=== PATIENT | female | born 1940 | race Caucasian/White ===

== ENCOUNTER 2022-02-11 08:47 | Inpatient (IN) ==
[2022-02-11] MEDS ORDERED: fentaNYL 100 MCG/2 ML VIAL IV STA ×3 (09:39→13:44)
[2022-02-11] MEDS ORDERED: ONDANSETRON 4 MG/2 ML VIAL IV STA (09:39)
[2022-02-11] MEDS ORDERED: ONDANSETRON 4 MG/2 ML VIAL ONE (09:40)
[2022-02-11] MEDS ORDERED: fentaNYL 100 MCG/2 ML VIAL ONE (09:41)
[2022-02-11 11:39] LABS: Basophils # 0.1 10*3/uL (0.0-0.2); Basophils % 0.4 % (0.0-0.8); Eosinophils % 0.3 % (0.00-10.9); Hematocrit 34.5 VOL% (35.7-47.0); Immature Granulocytes % 0.4 %; Immature Granulocytes Absolute 0.05 #; Lymphocytes # 0.9 10*3/uL (1.4-4.0); Lymphocytes % 7.9 % (21.3-54.2); Mean Corpuscular HGB Conc 31.9 GM/DL (32-36); Mean Corpuscular Volume 91.3 FL (87-102); Mean Platelet Volume 10.7 FL (9.6-12.0); Monocytes # 0.5 10*3/uL (0.11-0.8); Monocytes % 4.5 % (1.7-12.7); Neutrophils % 86.5 % (38.7-73.9); Platelet Count 166 T/CUMM (130-400); Red Blood Count 3.78 MC/CUMM (3.8-5.5); White Blood Count 11.7 T/CUMM (4-12)
[2022-02-11 11:50] LABS: INR 1.1; PT Patient Result 12.3 SECS (10.5-12.0); Partial Thromboplastin Time 24.5 SECS (23.8-32.1)
[2022-02-11 11:58] LABS: Albumin 3.5 G/DL (3.4-5.0); Bilirubin,Total 1.1 MG/DL (0.20-1.00); Calcium 8.6 MG/DL (8.5-10.1); Osmolality,Calculated 283.3 MOS/KG (273-304); Potassium 4.1 MMOL/L (3.5-5.1); Total Protein 7.3 G/DL (6.4-8.2)
[2022-02-11] MEDS ORDERED: ONDANSETRON 4 MG/2 ML VIAL IV PRN (12:46)
[2022-02-11] MEDS ORDERED: ACETAMINOPHEN 325 MG TABLET PO PRN (12:46)
[2022-02-11] MEDS ORDERED: GLUCAGON 1 MG VIAL IM PRN (12:46)
[2022-02-11] MEDS ORDERED: KETOROLAC 30 MG/1 ML VIAL IV PRN (12:52)
[2022-02-11 12:54] LABS: Bacteria,Urine Moderate /HPF (Few); Bilirubin,Urine Negative (Negative); Blood, Urine Trace mg/dL (Negative); Glucose,Urine (UA) Negative (Negative); Ketones,Urine Trace mg/dL (Negative); Mucus,Urine Occasional /LPF (Occasional); Nitrite,Urine Negative (Negative); Protein,Urine Negative (Negative); RBC,Urine 4 /HPF (0-4); Squamous Epithelial Cell,Urine Occasional /HPF (0-10); Urine Appearance Clear (Clear); Urine Color Yellow (Yellow); Urine pH 5.5 (4.5-8.0)
[2022-02-11 12:55] LABS: Urine Urobilinogen 0.2 eU/dL (<2.0)
[2022-02-11] MEDS ORDERED: DEXTROSE 10% 250 ML BAG IV PRN (12:55)
[2022-02-11 13:37] LABS: Risk Ratio 3.76; Thyroid Stimulating Hormone 3.63 uIU/ml (0.358-3.74); VLDL Cholesterol 13.2 MG/DL
[2022-02-11] MEDS: LACTATED RINGERS 1,000 ML IV SCH (14:15)
[2022-02-11] MEDS: hydrALAZINE 20 MG/1 ML VIAL IV PRN ×2 (14:16→19:22)
[2022-02-11] MEDS ORDERED: MORPHINE 2 MG/1 ML SYRINGE IV PRN ×2 (15:30→15:33)
[2022-02-11] MEDS: DOCUSATE SODIUM 100 MG CAPSULE PO SCH (21:14)
[2022-02-12] MEDS: LACTATED RINGERS 1,000 ML IV SCH ×2 (02:58→17:29)
[2022-02-12 05:50] LABS: Basophils % 0.3 % (0.0-0.8); Eosinophils % 0.2 % (0.00-10.9); Hematocrit 35.3 VOL% (35.7-47.0); Hemoglobin 11.2 GM/DL (12.0-16.0); Immature Granulocytes % 0.5 %; Immature Granulocytes Absolute 0.06 #; Lymphocytes # 0.9 10*3/uL (1.4-4.0); Lymphocytes % 7.9 % (21.3-54.2); Mean Corpuscular HGB Conc 31.7 GM/DL (32-36); Mean Corpuscular Volume 90.1 FL (87-102); Mean Platelet Volume 11.3 FL (9.6-12.0); Monocytes # 0.7 10*3/uL (0.11-0.8); Neutrophils % 85.1 % (38.7-73.9); Platelet Count 144 T/CUMM (130-400); Red Blood Count 3.92 MC/CUMM (3.8-5.5); White Blood Count 11.9 T/CUMM (4-12)
[2022-02-12 06:07] LABS: Albumin 3.2 G/DL (3.4-5.0); Bilirubin,Total 1.6 MG/DL (0.20-1.00); Calcium 8.8 MG/DL (8.5-10.1); Osmolality,Calculated 281.4 MOS/KG (273-304); Potassium 4.3 MMOL/L (3.5-5.1); Total Protein 7.3 G/DL (6.4-8.2)
[2022-02-12] MEDS ORDERED: BUPIVACAINE MPF 0.5% 30 ML VIAL ONE (08:02)
[2022-02-12] MEDS ORDERED: LIDOCAINE 1% 5 ML VIAL ONE (08:03)
[2022-02-12] MEDS ORDERED: DEXAMETHASONE 4 MG/1 ML VIAL ONE (08:03)
[2022-02-12] MEDS ORDERED: propofoL 200 MG/20 ML VIAL IV ONE (08:38)
[2022-02-12] MEDS ORDERED: ROCURONIUM 50 MG/5 ML VIAL IV ONE (08:38)
[2022-02-12] MEDS ORDERED: ETOMIDATE 40 MG/20 ML VIAL IV ONE (08:38)
[2022-02-12] MEDS ORDERED: MIDAZOLAM 2 MG/2 ML VIAL ONE (08:38)
[2022-02-12] MEDS ORDERED: SEVOFLURANE 1 UNIT/15 MINUTE INH ONE (08:38)
[2022-02-12] MEDS ORDERED: ACETAMINOPHEN INJ 1,000 MG/100 ML VIAL IV ONE (08:38)
[2022-02-12] MEDS ORDERED: LIDOCAINE 2% 5 ML VIAL ONE (08:38)
[2022-02-12] MEDS ORDERED: ONDANSETRON 4 MG/2 ML VIAL ONE (08:38)
[2022-02-12] MEDS ORDERED: PHENYLEPHRINE 1 MG/10 ML SYRINGE IV ONE (08:38)
[2022-02-12] MEDS ORDERED: fentaNYL 100 MCG/2 ML VIAL ONE ×2 (08:39→10:12)
[2022-02-12] MEDS ORDERED: VANCOMYCIN INJ 1,000 MG in SODIUM CHLORIDE 0.9% 250 ML IV ONE (09:00)
[2022-02-12] MEDS ORDERED: MAGNESIUM HYDROXIDE SUSP 30 ML UDCUP PO PRN (09:52)
[2022-02-12] MEDS ORDERED: TRANEXAMIC ACID 1,000 MG/10 ML VIAL ONE (09:58)
[2022-02-12] MEDS ORDERED: BACITRACIN OINT 0.9 GM PACK TOP ONE (10:25)
[2022-02-12] MEDS ORDERED: ONDANSETRON 4 MG/2 ML VIAL IV PRN (11:30)
[2022-02-12] MEDS ORDERED: diphenhydrAMINE 50 MG/1 ML VIAL IV PRN (11:30)
[2022-02-12] MEDS ORDERED: PROMETHAZINE INJ 25 MG in SODIUM CHLORIDE 0.9% 50 ML IV PRN (11:30)
[2022-02-12] MEDS: HYDROmorphone 1 MG/1 ML SYRINGE IV PRN ×2 (11:55→12:00)
[2022-02-12] MEDS: hydrALAZINE 20 MG/1 ML VIAL IV PRN (12:05)
[2022-02-12] MEDS: DOCUSATE SODIUM 100 MG CAPSULE PO SCH ×2 (13:41→20:55)
[2022-02-12] MEDS: PANTOPRAZOLE 40 MG TABLET PO SCH (13:41)
[2022-02-12] MEDS: KETOROLAC 15 MG/1 ML VIAL IV SCH ×2 (13:41→17:29)
[2022-02-12] MEDS: APIXABAN 2.5 MG TABLET PO SCH (20:55)
[2022-02-12] MEDS: QUEtiapine 25 MG TABLET PO SCH (21:16)
[2022-02-13] MEDS: KETOROLAC 15 MG/1 ML VIAL IV SCH ×2 (00:22→05:20)
[2022-02-13] MEDS: LACTATED RINGERS 1,000 ML IV SCH ×4 (00:39→22:29)
[2022-02-13] MEDS ORDERED: FONDAPARINUX 2.5 MG/0.5 ML SYRINGE SUBCUT SCH (05:00)
[2022-02-13 05:34] LABS: Basophils % 0.1 % (0.0-0.8); Eosinophils # 0.1 10*3/uL (0.0-0.87); Eosinophils % 0.6 % (0.00-10.9); Hematocrit 26.8 VOL% (35.7-47.0); Immature Granulocytes % 0.4 %; Immature Granulocytes Absolute 0.03 #; Lymphocytes # 1.2 10*3/uL (1.4-4.0); Lymphocytes % 13.7 % (21.3-54.2); Mean Corpuscular HGB Conc 32.1 GM/DL (32-36); Mean Corpuscular Volume 91.2 FL (87-102); Mean Platelet Volume 10.9 FL (9.6-12.0); Monocytes # 0.7 10*3/uL (0.11-0.8); Monocytes % 8.5 % (1.7-12.7); Neutrophils % 76.7 % (38.7-73.9); Platelet Count 117 T/CUMM (130-400); Red Cell Distribution Width 14.3 % (9.3-17.3); White Blood Count 8.4 T/CUMM (4-12)
[2022-02-13 05:37] LABS: Hemoglobin 8.6 GM/DL (12.0-16.0); Red Blood Count 2.94 MC/CUMM (3.8-5.5)
[2022-02-13 05:42] LABS: Albumin 2.5 G/DL (3.4-5.0); Bilirubin,Total 1.4 MG/DL (0.20-1.00); Calcium 7.9 MG/DL (8.5-10.1); Osmolality,Calculated 281.4 MOS/KG (273-304); Potassium 4.1 MMOL/L (3.5-5.1); Total Protein 5.8 G/DL (6.4-8.2)
[2022-02-13] MEDS ORDERED: CYANOCOBALAMIN 1000 MCG/1 ML VIAL IM SCH (08:00)
[2022-02-13] MEDS: MAGNESIUM CHLORIDE 64 MG TABLET PO SCH ×2 (08:15→20:51)
[2022-02-13] MEDS: PANTOPRAZOLE 40 MG TABLET PO SCH (08:15)
[2022-02-13] MEDS: DOCUSATE SODIUM 100 MG CAPSULE PO SCH ×2 (08:15→20:51)
[2022-02-13] MEDS: lisinopriL 5 MG TABLET PO SCH ×2 (08:15→20:52)
[2022-02-13] MEDS: APIXABAN 2.5 MG TABLET PO SCH ×2 (08:15→20:51)
[2022-02-13] MEDS: METOPROLOL SUCCINATE XL 50 MG TABLET PO SCH ×2 (08:16→20:51)
[2022-02-13] MEDS: ALFUZOSIN 10 MG TABLET PO SCH (20:51)
[2022-02-13] MEDS: QUEtiapine 25 MG TABLET PO SCH (20:52)
[2022-02-14 05:13] LABS: Basophils % 0.4 % (0.0-0.8); Eosinophils # 0.4 10*3/uL (0.0-0.87); Eosinophils % 4.6 % (0.00-10.9); Hematocrit 25.6 VOL% (35.7-47.0); Hemoglobin 8.2 GM/DL (12.0-16.0); Immature Granulocytes % 0.4 %; Immature Granulocytes Absolute 0.03 #; Lymphocytes # 1.4 10*3/uL (1.4-4.0); Lymphocytes % 17.9 % (21.3-54.2); Mean Corpuscular Volume 90.5 FL (87-102); Mean Platelet Volume 10.9 FL (9.6-12.0); Monocytes # 0.7 10*3/uL (0.11-0.8); Monocytes % 8.2 % (1.7-12.7); Neutrophils % 68.5 % (38.7-73.9); Platelet Count 109 T/CUMM (130-400); Red Blood Count 2.83 MC/CUMM (3.8-5.5); Red Cell Distribution Width 14.1 % (9.3-17.3)
[2022-02-14 05:46] LABS: Albumin 2.6 G/DL (3.4-5.0); Bilirubin,Total 1.1 MG/DL (0.20-1.00); Calcium 7.5 MG/DL (8.5-10.1); Osmolality,Calculated 278.5 MOS/KG (273-304); Potassium 3.8 MMOL/L (3.5-5.1); Total Protein 5.8 G/DL (6.4-8.2)
[2022-02-14] MEDS: LACTATED RINGERS 1,000 ML IV SCH (06:47)
[2022-02-14] MEDS: METOPROLOL SUCCINATE XL 50 MG TABLET PO SCH ×2 (09:25→21:04)
[2022-02-14] MEDS: MAGNESIUM CHLORIDE 64 MG TABLET PO SCH ×2 (09:25→21:03)
[2022-02-14] MEDS: APIXABAN 2.5 MG TABLET PO SCH ×2 (09:25→21:03)
[2022-02-14] MEDS: DOCUSATE SODIUM 100 MG CAPSULE PO SCH ×2 (09:26→21:33)
[2022-02-14] MEDS: PANTOPRAZOLE 40 MG TABLET PO SCH (09:26)
[2022-02-14] MEDS: lisinopriL 5 MG TABLET PO SCH ×2 (09:26→21:03)
[2022-02-14] MEDS ORDERED: LEVALBUTEROL 0.63 MG/3 ML NEB RESP TX PRN (12:49)
[2022-02-14] MEDS: QUEtiapine 25 MG TABLET PO SCH (21:03)
[2022-02-14] MEDS: ALFUZOSIN 10 MG TABLET PO SCH (21:04)
[2022-02-15 06:14] LABS: Basophils % 0.4 % (0.0-0.8); Eosinophils # 0.5 10*3/uL (0.0-0.87); Eosinophils % 6.1 % (0.00-10.9); Hematocrit 23.5 VOL% (35.7-47.0); Hemoglobin 7.4 GM/DL (12.0-16.0); Immature Granulocytes % 0.4 %; Immature Granulocytes Absolute 0.03 #; Lymphocytes # 1.5 10*3/uL (1.4-4.0); Lymphocytes % 19.5 % (21.3-54.2); Mean Corpuscular HGB Conc 31.5 GM/DL (32-36); Mean Corpuscular Volume 91.8 FL (87-102); Mean Platelet Volume 11.5 FL (9.6-12.0); Monocytes # 0.6 10*3/uL (0.11-0.8); Monocytes % 8.3 % (1.7-12.7); Neutrophils % 65.3 % (38.7-73.9); Platelet Count 114 T/CUMM (130-400); Red Blood Count 2.56 MC/CUMM (3.8-5.5); Red Cell Distribution Width 14.2 % (9.3-17.3); White Blood Count 7.4 T/CUMM (4-12)
[2022-02-15 06:36] LABS: Albumin 2.3 G/DL (3.4-5.0); Bilirubin,Total 0.9 MG/DL (0.20-1.00); Calcium 7.5 MG/DL (8.5-10.1); Osmolality,Calculated 285.8 MOS/KG (273-304); Potassium 3.7 MMOL/L (3.5-5.1); Total Protein 5.3 G/DL (6.4-8.2)
[2022-02-15 07:46] VITALS: BP 131/61
[2022-02-15] MEDS: PANTOPRAZOLE 40 MG TABLET PO SCH (08:51)
[2022-02-15] MEDS: APIXABAN 2.5 MG TABLET PO SCH (08:51)
[2022-02-15] MEDS: DOCUSATE SODIUM 100 MG CAPSULE PO SCH (08:51)
[2022-02-15] MEDS: lisinopriL 5 MG TABLET PO SCH (08:51)
[2022-02-15] MEDS: METOPROLOL SUCCINATE XL 50 MG TABLET PO SCH (08:51)
[2022-02-15] MEDS: MAGNESIUM CHLORIDE 64 MG TABLET PO SCH (08:51)
== END 2022-02-15 10:40 | DRG 522 ==
LOC: EDBD → EDUNIT# → N.ED 08:47 → N.EDINP 12:46 → SUATTDRO 12:46 → N.3E 15:47
PROVIDERS: ADMIT Internal Medicine; ATTEND Internal Medicine

== ENCOUNTER 2022-03-01 17:32 | Inpatient (IN) ==
[~2022-03-01 17:32] MED LIST: MAGNESIUM HYDROXIDE SUSP 30 ML UDCUP PO PRN
[2022-03-01] MEDS ORDERED: HYDROmorphone 1 MG/1 ML SYRINGE IV PRN (17:33)
[2022-03-01] MEDS ORDERED: ONDANSETRON 4 MG/2 ML VIAL IV PRN (17:33)
[2022-03-01] MEDS ORDERED: LEVALBUTEROL 0.63 MG/3 ML NEB RESP TX PRN (17:37)
[2022-03-01] MEDS: METOPROLOL SUCCINATE XL 50 MG TABLET PO SCH (21:16)
[2022-03-01] MEDS: DOCUSATE SODIUM 100 MG CAPSULE PO SCH (21:16)
[2022-03-01] MEDS: LACTATED RINGERS 1,000 ML IV SCH (21:16)
[2022-03-01] MEDS: QUEtiapine 25 MG TABLET PO SCH (21:16)
[2022-03-01 21:31] LABS: Basophils % 0.4 % (0.0-0.8); Eosinophils % 0.5 % (0.00-10.9); Hematocrit 24.9 VOL% (35.7-47.0); Hemoglobin 7.8 GM/DL (12.0-16.0); Immature Granulocytes % 0.5 %; Immature Granulocytes Absolute 0.04 #; Lymphocytes # 1.2 10*3/uL (1.4-4.0); Lymphocytes % 14.7 % (21.3-54.2); Mean Corpuscular HGB Conc 31.3 GM/DL (32-36); Mean Corpuscular Volume 91.5 FL (87-102); Mean Platelet Volume 9.5 FL (9.6-12.0); Monocytes # 0.9 10*3/uL (0.11-0.8); Monocytes % 10.5 % (1.7-12.7); Neutrophils % 73.4 % (38.7-73.9); Platelet Count 337 T/CUMM (130-400); Red Blood Count 2.72 MC/CUMM (3.8-5.5); Red Cell Distribution Width 14.6 % (9.3-17.3); White Blood Count 8.3 T/CUMM (4-12)
[2022-03-01 21:49] LABS: Calcium 7.8 MG/DL (8.5-10.1); Potassium 4.3 MMOL/L (3.5-5.1)
[2022-03-01] MEDS: MAGNESIUM CHLORIDE 64 MG TABLET PO SCH (22:00)
[2022-03-01] MEDS: VANCOMYCIN INJ 1,000 MG in SODIUM CHLORIDE 0.9% 250 ML IV SCH (23:50)
[2022-03-02 06:32] LABS: Basophils % 0.5 % (0.0-0.8); Eosinophils # 0.1 10*3/uL (0.0-0.87); Eosinophils % 1.7 % (0.00-10.9); Hematocrit 23.8 VOL% (35.7-47.0); Hemoglobin 7.5 GM/DL (12.0-16.0); Immature Granulocytes % 0.5 %; Immature Granulocytes Absolute 0.03 #; Lymphocytes # 1.2 10*3/uL (1.4-4.0); Lymphocytes % 19.9 % (21.3-54.2); Mean Corpuscular HGB Conc 31.5 GM/DL (32-36); Mean Corpuscular Volume 91.9 FL (87-102); Mean Platelet Volume 9.8 FL (9.6-12.0); Monocytes # 0.6 10*3/uL (0.11-0.8); Monocytes % 10.4 % (1.7-12.7); Platelet Count 308 T/CUMM (130-400); Red Blood Count 2.59 MC/CUMM (3.8-5.5); Red Cell Distribution Width 14.5 % (9.3-17.3)
[2022-03-02] MEDS ORDERED: SODIUM CHLORIDE 0.9% 1,000 ML IV PRN (06:41)
[2022-03-02 06:42] LABS: INR 1.1; PT Patient Result 12.4 SECS (10.5-12.0); Partial Thromboplastin Time 29.3 SECS (23.8-32.1)
[2022-03-02 06:56] LABS: Albumin 2.1 G/DL (3.4-5.0); Bilirubin,Total 0.7 MG/DL (0.20-1.00); Calcium 7.9 MG/DL (8.5-10.1); Osmolality,Calculated 277.5 MOS/KG (273-304); Potassium 4.1 MMOL/L (3.5-5.1); Total Protein 6.3 G/DL (6.4-8.2)
[2022-03-02] MEDS ORDERED: ACETAMINOPHEN 325 MG TABLET PO PRN (07:17)
[2022-03-02] MEDS: FUROSEMIDE 20 MG TABLET PO SCH (11:18)
[2022-03-02] MEDS: DIGOXIN 0.125 MG TABLET PO SCH (11:18)
[2022-03-02] MEDS: LACTATED RINGERS 1,000 ML IV SCH ×2 (11:18→13:59)
[2022-03-02] MEDS: POTASSIUM CHLORIDE 20 MEQ TABLET PO SCH (11:18)
[2022-03-02] MEDS: DOCUSATE SODIUM 100 MG CAPSULE PO SCH ×2 (11:18→21:21)
[2022-03-02] MEDS: FERROUS SULFATE 325 MG TABLET PO SCH (11:18)
[2022-03-02] MEDS: PANTOPRAZOLE 40 MG TABLET PO SCH (11:19)
[2022-03-02] MEDS: MAGNESIUM CHLORIDE 64 MG TABLET PO SCH ×2 (11:19→21:20)
[2022-03-02] MEDS: METOPROLOL SUCCINATE XL 50 MG TABLET PO SCH ×2 (11:19→21:20)
[2022-03-02] MEDS ORDERED: BACITRACIN OINT 0.9 GM PACK TOP ONE (11:59)
[2022-03-02] MEDS ORDERED: LACTATED RINGERS 1,000 ML IV SCH (12:00)
[2022-03-02] MEDS ORDERED: LIDOCAINE 2% 5 ML VIAL ONE (12:35)
[2022-03-02] MEDS ORDERED: propofoL 200 MG/20 ML VIAL IV ONE (12:35)
[2022-03-02] MEDS ORDERED: SEVOFLURANE 1 UNIT/15 MINUTE INH ONE ×7 (12:35→15:45)
[2022-03-02] MEDS ORDERED: fentaNYL 100 MCG/2 ML VIAL ONE ×2 (12:35→15:10)
[2022-03-02] MEDS ORDERED: ROCURONIUM 50 MG/5 ML VIAL IV ONE (12:35)
[2022-03-02] MEDS ORDERED: SUCCINYLCHOLINE 200 MG/10 ML VIAL ONE (12:36)
[2022-03-02] MEDS ORDERED: DEXAMETHASONE 4 MG/1 ML VIAL ONE (15:36)
[2022-03-02] MEDS ORDERED: ACETAMINOPHEN INJ 1,000 MG/100 ML VIAL IV ONE (15:36)
[2022-03-02] MEDS ORDERED: ONDANSETRON 4 MG/2 ML VIAL ONE (15:36)
[2022-03-02] MEDS ORDERED: KETOROLAC 30 MG/1 ML VIAL ONE (15:36)
[2022-03-02] MEDS ORDERED: TRANEXAMIC ACID 1,000 MG/10 ML VIAL ONE (15:37)
[2022-03-02] MEDS ORDERED: KETOROLAC 15 MG/1 ML VIAL IV PRN (15:51)
[2022-03-02 16:17] LABS: Bacteria,Urine Occasional /HPF (Few); RBC,Urine 25-30 /HPF (0-4); Squamous Epithelial Cell,Urine Occasional /HPF (0-10)
[2022-03-02 16:18] LABS: Bilirubin,Urine Negative (Negative); Blood, Urine Moderate mg/dL (Negative); Glucose,Urine (UA) Negative (Negative); Ketones,Urine Negative (Negative); Nitrite,Urine Negative (Negative); Protein,Urine Negative (Negative); Urine Appearance Clear (Clear); Urine Color Yellow (Yellow); Urine Specific Gravity 1.015 (1.001-1.035); Urine Urobilinogen 0.2 eU/dL (<2.0)
[2022-03-02] MEDS ORDERED: HYDROmorphone 1 MG/1 ML SYRINGE IV ONE (16:48)
[2022-03-02] MEDS: VANCOMYCIN INJ 1,000 MG in SODIUM CHLORIDE 0.9% 250 ML IV SCH (17:34)
[2022-03-02 19:49] LABS: Hematocrit 30.4 VOL% (35.7-47.0); Hemoglobin 9.7 GM/DL (12.0-16.0)
[2022-03-02] MEDS ORDERED: QUEtiapine 25 MG TABLET PO SCH (21:00)
[2022-03-02] MEDS: QUEtiapine 25 MG TABLET PO SCH (21:20)
[2022-03-02] MEDS: ALFUZOSIN 10 MG TABLET PO SCH (21:20)
[2022-03-02] MEDS: traZODone 50 MG TABLET PO SCH (21:20)
[2022-03-03] MEDS: LACTATED RINGERS 1,000 ML IV SCH ×2 (04:49→11:05)
[2022-03-03 06:03] LABS: Bacteria,Urine Occasional /HPF (Few); Mucus,Urine Occasional /LPF (Occasional); Protein,Urine Negative (Negative); RBC,Urine 9 /HPF (0-4); Squamous Epithelial Cell,Urine Occasional /HPF (0-10); Urine Appearance Clear (Clear); Urine Color Yellow (Yellow); Urine Specific Gravity 1.015 (1.001-1.035); Urine pH 5.5 (4.5-8.0)
[2022-03-03 06:04] LABS: Bilirubin,Urine Negative (Negative); Blood, Urine Moderate mg/dL (Negative); Glucose,Urine (UA) Negative (Negative); Ketones,Urine Negative (Negative); Nitrite,Urine Negative (Negative); Urine Urobilinogen 0.2 eU/dL (<2.0)
[2022-03-03 06:53] LABS: Basophils % 0.1 % (0.0-0.8); Hematocrit 26.9 VOL% (35.7-47.0); Hemoglobin 8.7 GM/DL (12.0-16.0); Immature Granulocytes % 0.6 %; Immature Granulocytes Absolute 0.05 #; Lymphocytes # 0.8 10*3/uL (1.4-4.0); Lymphocytes % 8.8 % (21.3-54.2); Mean Corpuscular HGB Conc 32.3 GM/DL (32-36); Mean Corpuscular Volume 90.9 FL (87-102); Mean Platelet Volume 9.9 FL (9.6-12.0); Monocytes # 0.7 10*3/uL (0.11-0.8); Monocytes % 7.6 % (1.7-12.7); Neutrophils % 82.9 % (38.7-73.9); Platelet Count 276 T/CUMM (130-400); Red Blood Count 2.96 MC/CUMM (3.8-5.5); Red Cell Distribution Width 14.4 % (9.3-17.3); White Blood Count 8.9 T/CUMM (4-12)
[2022-03-03 07:12] LABS: Calcium 7.7 MG/DL (8.5-10.1); Osmolality,Calculated 280.4 MOS/KG (273-304); Potassium 4.6 MMOL/L (3.5-5.1)
[2022-03-03] MEDS: METOPROLOL SUCCINATE XL 50 MG TABLET PO SCH ×2 (08:48→20:59)
[2022-03-03] MEDS: lisinopriL 5 MG TABLET PO SCH ×2 (08:48→20:58)
[2022-03-03] MEDS: FERROUS SULFATE 325 MG TABLET PO SCH (08:48)
[2022-03-03] MEDS: APIXABAN 2.5 MG TABLET PO SCH ×2 (08:48→20:59)
[2022-03-03] MEDS: DOCUSATE SODIUM 100 MG CAPSULE PO SCH ×2 (08:48→20:59)
[2022-03-03] MEDS: FUROSEMIDE 20 MG TABLET PO SCH (08:48)
[2022-03-03] MEDS: DIGOXIN 0.125 MG TABLET PO SCH (08:49)
[2022-03-03] MEDS: MAGNESIUM CHLORIDE 64 MG TABLET PO SCH ×2 (08:49→20:58)
[2022-03-03] MEDS: PANTOPRAZOLE 40 MG TABLET PO SCH (08:49)
[2022-03-03] MEDS: POTASSIUM CHLORIDE 20 MEQ TABLET PO SCH (08:49)
[2022-03-03] MEDS: VANCOMYCIN INJ 1,000 MG in SODIUM CHLORIDE 0.9% 250 ML IV SCH (11:05)
[2022-03-03] MEDS: cefTRIAXone 2,000 MG in SODIUM CHLORIDE 0.9% 100 ML IV SCH (19:07)
[2022-03-03] MEDS: traZODone 50 MG TABLET PO SCH (20:57)
[2022-03-03] MEDS: ALFUZOSIN 10 MG TABLET PO SCH (20:57)
[2022-03-03] MEDS: QUEtiapine 25 MG TABLET PO SCH (20:59)
[2022-03-03] MEDS: MENTHOL/ZINC OXIDE OINT 71 GM JAR TOP SCH (21:03)
[2022-03-04 05:05] LABS: Basophils % 0.4 % (0.0-0.8); Eosinophils # 0.1 10*3/uL (0.0-0.87); Eosinophils % 1.8 % (0.00-10.9); Hematocrit 25.4 VOL% (35.7-47.0); Hemoglobin 8.1 GM/DL (12.0-16.0); Immature Granulocytes % 0.7 %; Immature Granulocytes Absolute 0.05 #; Lymphocytes # 1.3 10*3/uL (1.4-4.0); Lymphocytes % 17.7 % (21.3-54.2); Mean Corpuscular HGB Conc 31.9 GM/DL (32-36); Mean Corpuscular Volume 91.7 FL (87-102); Mean Platelet Volume 10.3 FL (9.6-12.0); Monocytes # 0.7 10*3/uL (0.11-0.8); Monocytes % 9.3 % (1.7-12.7); Neutrophils % 70.1 % (38.7-73.9); Platelet Count 243 T/CUMM (130-400); Red Blood Count 2.77 MC/CUMM (3.8-5.5); Red Cell Distribution Width 14.7 % (9.3-17.3); White Blood Count 7.3 T/CUMM (4-12)
[2022-03-04 05:22] LABS: Calcium 7.9 MG/DL (8.5-10.1); Osmolality,Calculated 278.3 MOS/KG (273-304); Potassium 4.2 MMOL/L (3.5-5.1)
[2022-03-04] MEDS: VANCOMYCIN INJ 1,000 MG in SODIUM CHLORIDE 0.9% 250 ML IV SCH ×2 (05:29→17:48)
[2022-03-04] MEDS: FERROUS SULFATE 325 MG TABLET PO SCH (08:35)
[2022-03-04] MEDS: MAGNESIUM CHLORIDE 64 MG TABLET PO SCH ×2 (08:35→20:37)
[2022-03-04] MEDS: POTASSIUM CHLORIDE 20 MEQ TABLET PO SCH (08:35)
[2022-03-04] MEDS: APIXABAN 2.5 MG TABLET PO SCH ×2 (08:35→20:37)
[2022-03-04] MEDS: lisinopriL 5 MG TABLET PO SCH ×2 (08:35→20:36)
[2022-03-04] MEDS: DOCUSATE SODIUM 100 MG CAPSULE PO SCH ×2 (08:35→20:37)
[2022-03-04] MEDS: FUROSEMIDE 20 MG TABLET PO SCH (08:35)
[2022-03-04] MEDS: DIGOXIN 0.125 MG TABLET PO SCH (08:35)
[2022-03-04] MEDS: METOPROLOL SUCCINATE XL 50 MG TABLET PO SCH ×2 (08:36→20:36)
[2022-03-04] MEDS: PANTOPRAZOLE 40 MG TABLET PO SCH (08:36)
[2022-03-04] MEDS: MENTHOL/ZINC OXIDE OINT 71 GM JAR TOP SCH ×2 (10:05→20:35)
[2022-03-04] MEDS: cefTRIAXone 2,000 MG in SODIUM CHLORIDE 0.9% 100 ML IV SCH (20:35)
[2022-03-04] MEDS: traZODone 50 MG TABLET PO SCH (20:36)
[2022-03-04] MEDS: ALFUZOSIN 10 MG TABLET PO SCH (20:37)
[2022-03-04] MEDS: QUEtiapine 25 MG TABLET PO SCH (20:37)
[2022-03-05] MEDS: VANCOMYCIN INJ 1,000 MG in SODIUM CHLORIDE 0.9% 250 ML IV SCH (04:52)
[2022-03-05 05:36] LABS: Basophils % 0.6 % (0.0-0.8); Eosinophils # 0.2 10*3/uL (0.0-0.87); Eosinophils % 3.1 % (0.00-10.9); Hematocrit 26.6 VOL% (35.7-47.0); Hemoglobin 8.3 GM/DL (12.0-16.0); Immature Granulocytes % 0.9 %; Immature Granulocytes Absolute 0.06 #; Lymphocytes # 1.3 10*3/uL (1.4-4.0); Lymphocytes % 18.5 % (21.3-54.2); Mean Corpuscular HGB Conc 31.2 GM/DL (32-36); Mean Corpuscular Volume 93.3 FL (87-102); Mean Platelet Volume 9.4 FL (9.6-12.0); Monocytes # 0.7 10*3/uL (0.11-0.8); Monocytes % 10.4 % (1.7-12.7); Neutrophils % 66.5 % (38.7-73.9); Platelet Count 315 T/CUMM (130-400); Red Blood Count 2.85 MC/CUMM (3.8-5.5); Red Cell Distribution Width 14.9 % (9.3-17.3)
[2022-03-05 06:09] LABS: Calcium 8.2 MG/DL (8.5-10.1); Osmolality,Calculated 280.1 MOS/KG (273-304); Potassium 4.4 MMOL/L (3.5-5.1)
[2022-03-05] MEDS ORDERED: LIDOCAINE 1%/EPI INJ 20 ML VIAL ONE (08:35)
[2022-03-05] MEDS: MENTHOL/ZINC OXIDE OINT 71 GM JAR TOP SCH (09:35)
[2022-03-05] MEDS: POTASSIUM CHLORIDE 20 MEQ TABLET PO SCH (09:35)
[2022-03-05] MEDS: DOCUSATE SODIUM 100 MG CAPSULE PO SCH (09:35)
[2022-03-05] MEDS: APIXABAN 2.5 MG TABLET PO SCH (09:35)
[2022-03-05] MEDS: MAGNESIUM CHLORIDE 64 MG TABLET PO SCH (09:35)
[2022-03-05] MEDS: PANTOPRAZOLE 40 MG TABLET PO SCH (09:36)
[2022-03-05] MEDS: FUROSEMIDE 20 MG TABLET PO SCH (09:36)
[2022-03-05] MEDS: lisinopriL 5 MG TABLET PO SCH (09:36)
[2022-03-05] MEDS: FERROUS SULFATE 325 MG TABLET PO SCH (09:36)
[2022-03-05] MEDS: DIGOXIN 0.125 MG TABLET PO SCH (09:36)
[2022-03-05] MEDS: METOPROLOL SUCCINATE XL 50 MG TABLET PO SCH (09:36)
[2022-03-05 12:10] VITALS: BP 132/59
[2022-03-14] MEDS ORDERED: CYANOCOBALAMIN 1000 MCG/1 ML VIAL IM SCH (09:00)
== END 2022-03-05 13:28 | DRG 467 ==
LOC: N.3EOUT 17:32 → N.3E 17:33 → EDSTATUS 19:55 → N.3E 20:17
PROVIDERS: ADMIT Orthopaedic Surgery; ATTEND Orthopaedic Surgery